=== PATIENT | female | born 1945 | race Caucasian/White ===

== ENCOUNTER 2022-09-23 13:08 | Emergency (ER) | payer MEDICARE, OTHER ==
[2022-09-23 13:36] LABS: BASOPHILS ABSOLUTE AUTO 0.03 K/mm3 (0.01-0.08); BASOPHILS PERCENT AUTO 0.5 % (0.1-1.2); EOSINOPHILS ABSOLUTE AUTO 0.33 K/mm3 (0.04-0.36); EOSINOPHILS PERCENT AUTO 5.2 (0.7-5.8); HEMOGLOBIN 13.9 gm/dl (11.2-15.7); IMMATURE GRAN ABSOLUTE AUTO 0.01 K/mm3 (0.00-0.10); IMMATURE GRAN PERCENT AUTO 0.2 % (<=1.0); LYMPHOCYTES PERCENT AUTO 29.8 % (19.3-51.7); MEAN CORPUSCULAR HEMOGLOBIN 30.1 pg (25.6-32.2); MEAN CORPUSCULAR HGB CONC 32.3 g/dl (32.2-35.5); MEAN CORPUSCULAR VOLUME 93.1 fl (79.4-94.8); MEAN PLATELET VOLUME 9.5 fl (9.4-12.3); MONOCYTES PERCENT AUTO 7.8 % (4.7-12.5); NEUTROPHILS PERCENT AUTO 56.5 % (34.0-71.1); PLATELET COUNT,PLT 245 K/mm3 (182-369); RED BLOOD CELL COUNT 4.62 M/mm3 (3.98-5.22); WHITE BLOOD CELL COUNT,WBC 6.37 K/mm3 (3.98-10.04)
[2022-09-23 13:54] LABS: INR 0.97; PROTHROMBIN TIME 10.4 SECONDS (9.7-12.0)
[2022-09-23 13:55] LABS: PTT,PARTIAL THROMBOPLSTIN TIME 25.2 SECONDS (21.7-31.4)
[2022-09-23 14:01] LABS: A/G RATIO 1.1 (1-2); ALBUMIN 4.2 g/dl (3.4-5.0); BILIRUBIN TOTAL 0.7 mg/dL (0.2-1.0); CALCIUM 9.7 mg/dL (8.5-10.1); CREATININE 1.2 mg/dL (0.55-1.02); EST CRCL DRUG DOSING (CG) 30.56 mL/min; PROTEIN TOTAL,TP 8.2 g/dl (6.4-8.2)
[2022-09-23] MEDS ORDERED: Clopidogrel 75 MG Tab PO ONE (14:15)
[2022-09-23] MEDS ORDERED: Iopamidol 755 Mg/ML 100 ML Bottle IVPUSH ONE (14:40)
[2022-09-23] MEDS ORDERED: Sodium Chloride 0.9% 100 ML IV SCH (14:45)
[2022-09-23] MEDS ORDERED: atorvaSTATin 40 MG Tab PO ONE (16:20)
== END 2022-09-23 16:44 | disposition home or self-care (01) ==
LOC: JD.ED 13:08
DX: G45.9 Transient cerebral ischemic attack, unspecified (principal); Z79.82 Long term (current) use of aspirin
CPT/HCPCS: 36415; 70450; 70496; 70498; 80053; 82947; 84484; 85025; 85610; 85730; 93005; 93246; 99285; A9270; J3490; Q9967; 93010